=== PATIENT | female | born 1960 | race African-American/Black ===

== ENCOUNTER 2020-07-27 21:06 | Observation (INO) | payer MEDICARE, MEDICAID ==
[2020-07-27] MEDS ORDERED: Nitroglycerin 2% Ointment 1 INCH/1 GM Packet ONE (21:29)
[2020-07-27 21:46] LABS: #Basophils 0.1 thou/uL (0.0-0.2); #Eosinphils 0.1 thou/uL (0.0-0.7); #Monocytes 0.5 thou/uL (0.11-0.59); #Neutrophils 4.3 thou/uL (1.40-6.50); %Basophils 1.8 % (0.0-1.0); %Eosinophils 1.8 % (0.0-10.0); %Lymphocytes 37.2 % (21.0-51.0); %Monocytes 5.6 % (0.0-10.0); %Neutrophils 53.6 % (42.0-75.0); Hemoglobin 14.8 g/dL (12.0-16.0); Mean Corpuscular HGB CONC 32.9 g/dL (32.0-36.0); Mean Corpuscular Hemoglobin 26.7 pg (27.0-31.0); Mean Corpuscular Volume 81.2 fL (78.0-98.0); Mean Platelet Volume 8.4 fL (7.4-10.4); Platelet Count 163 thou/uL (130-400); RBC Distribution Width 13.4 % (11.5-14.5); Red Blood Cell (RBC) Count 5.54 mill/uL (4.20-5.40); White Blood Cell (WBC) Count 8.1 thou/uL (4.8-10.8)
--- NOTE | 2020-07-27 21:56 | RAD ---
PORTABLE CHEST: 07/27/20 PROVIDED CLINICAL HISTORY: Chest pain. FINDINGS: Evaluation is limited by patient body habitus. Cardiac silhouette appears enlarged. Vascular calcific ation. No focal consolidation, pleural fluid or pneumothorax evident. IMPRESSION: As above. POS: [place]
[2020-07-27] MEDS ORDERED: Ondansetron PF 4 MG/2 ML Vial ONE (22:04)
[2020-07-27] MEDS ORDERED: Morphine 4 MG/ML VIAL ONE (22:04)
[2020-07-27 22:07] LABS: ALT (SGPT) 33 U/L (8-55); AST (SGOT) 37 U/L (5-34); Albumin 4.1 g/dL (3.5-5.0); Alkaline Phosphatase 101 U/L (40-110); Anion Gap 15 mmol/L (10-20); BUN (Urea Nitrogen) 14 mg/dL (9.8-20.1); Bilirubin, Total 0.5 mg/dL (0.2-1.2); Calc. Creatinine Clearance 0 mL/min (70-130); Calcium 9.7 mg/dL (7.8-10.44); Carbon Dioxide 26 mmol/L (22-29); Chloride 108 mmol/L (98-107); Estimated GFR-MDRD 45; Globulin 3.2 g/dL (2.4-3.5); Glucose 93 mg/dL (70-105); Lipase 77 U/L (8-78); Potassium 3.8 mmol/L (3.5-5.1); Protein, Total 7.3 g/dL (6.0-8.3); Sodium 145 mmol/L (136-145)
[2020-07-27] MEDS ORDERED: Aspirin Chewable 81 MG TAB ONE (22:30)
--- NOTE | 2020-07-27 23:38 | PDOC.HHP ---
Hospitalist HPI - History of Present Illness chest pain History of Present Illness: The patient is a 60-year-old female with a past medical history significant for CAD (2 stents), CHF, COPD, HTN, DM 2 and CVA that presents to the emergency department for the above complaint. Patient reports the acute onset of chest pain while laying down to go to sleep approximately 20 minutes prior to arrival to the emergency department. Reports the chest pain was located on her left chest, radiating to her left shoulder, described as tightness, constant, exacerbated and relieved by nothing. She reports associated shortness of breath. She has a specialist physician in [place], [place]. She has not had a cardiac work-up in some time. She has a history of COPD, denies wheezing or productive cough. She reports swelling to her bilateral lower extremities, however, she has missed several doses of her Lasix. She denies heart palpitations, lightheadedness, orthopnea/PND. No history of DVT/PE. No history of illicit d rug use. She denies fever and chills. Denies abdominal pain, nausea, vomiting, diarrhea. She denies dysuria or hematuria. ED Course: VITAL SIGNS ThuJul 27, 2020 21:07 KASSI Alcantara Julia BP: 209/108, Pulse: 75, Resp: 16, Temp: 98.2 (Oral), Pain: 7, O2 sat: 96 on (Pinky m Air), Time: 07/27/2020 21:07. VITAL SIGNS ThuJul 27, 2020 21:22 KASSI Callaway Jeffery BP: 195/100, MAP: 131, Pulse: 68, Resp: 22, Temp: 98.6 (Oral), Pain: 6, O2 sat: 99 on (Room Air), Time: 07/27/2020 21:22. VITAL SIGNS ThuJul 27, 2020 21:42 KASSI Doyle Catherine BP: 200/105, Pulse: 71, Resp: 22, Pain: 6, O2 sat: 97 on (Room Air), Time: 07/27/2020 21:42. VITAL SIGNS ThuJul 27, 2020 22:07 KASSI Callaway Jeffery BP: 168/84, MAP: 112, Pulse: 65, Resp: 17, Pain: 2, O2 sat: 96 on (Room Air), Time: 07/27/2020 22:07. VITAL SIGNS ThuJul 27, 2020 22:44 KASSI Callaway Jose BP: 168/82, MAP: 110, Pulse: 75, Resp: 16, O2 sat: 96 on (Room Air), Time: 07/27/2020 22:44. Medications: aspirin oral 324 mg Oral Given 22:39 07/27/2020 ondansetron HCl intravenous 4 mg IV Push Given 22:13 07/27/2020 morphine (PF) injection 4 mg IV Push Given 22:12 07/27/2020 Nitro-Bid transdermal 1 inch Topical Given 21:40 07/27/2020 Hospitalist ROS - Review of Systems All other systems reviewed; all pertinent +/- noted in HPI/Subj - Medication Medications: 1. Lasix unknown dose 2. Potassium chloride unknown dose 3. Metoprolol unknown dose 4. Amlodipine unknown dose 5. Jardiance unknown dose 6. Lantus 40 SC units twice daily 7. Trulicity 1.6 SC units q. 7 days 8. Humulin R 20 units SC twice daily. 9. Ambien unknown dose 10. Hydrocodone unknown dose 11. Lyrica unknown dose Allergies:Latex, Natural Rubber, traMADol Hospitalist History - Past Medical History Cardiac: reports: CAD (X2 stents), CHF, HTN Pulmonary: reports: COPD (No home medications) MANAGER TITLE: reports: CVA (Left residual weakness), Peripheral neuropathy Musculoskeletal: reports: Chronic low back pain Endocrine: reports: Diabetes (Type 2 insulin-dependent) - Past Surgical History Past Surgical History: reports: Hysterectomy, Tubal Ligation, Other (CAD x 2 stents (2010)) - Family History Family History: reports: cardiac disorder, respiratory disorder - Social History Smoking Status: Current every day smoker (1 pack/day x 30 years) Tobacco Type: cigarettes Alcohol: reports: None Drugs: reports: none Living Situation: With Family Occupation: Retired Activity level: uses cane/walker - Exam General Appearance: NAD, awake alert. negative: ill appearing Eye: anicteric sclera ENT: normocephalic atraumatic Neck: supple, symmetric, no JVD Heart: RRR, no murmur, no gallops, no rubs, normal peripheral pulses Respiratory: CTAB, no wheezes, no rales, no ronchi, normal chest expansion, no tachypnea Gastrointestinal: soft, non-tender, normal bowel sounds, no guarding, no rigidity Gastrointestinal - other findings: Negative Rovsing sign, negative Kellogg sign Extremities: no cyanosis, 2+ LE edema Skin: no rashes Neurological: cranial nerve grossly intact, no new deficit Neurological - other findings: Left lower extremity 4/5 power scale Psychiatric: normal affect, A&O x 3 Hospitalist Results - Labs Result Diagrams: 07/27/20 21:36 07/27/20 21:36 Lab results: WBC 8.1 thou/uL (4.8-10.8) 07/27/20 21:36 Hgb 14.8 g/dL (12.0-16.0) 07/27/20 21:36 Hct 45.0 % (36.0-47.0) 07/27/20 21:36 MCV 81.2 fL (78.0-98.0) 07/27/20 21:36 Plt Count 163 thou/uL (130-400) 07/27/20 21:36 Neutrophils % 53.6 % (42.0-75.0) 07/27/20 21:36 Sodium 145 mmol/L (136-145) 07/27/20 21:36 Potassium 3.8 mmol/L (3.5-5.1) 07/27/20 21:36 Chloride 108 mmol/L (98-107) H 07/27/20 21:36 Carbon Dioxide 26 mmol/L (22-29) 07/27/20 21:36 BUN 14 mg/dL (9.8-20.1) 07/27/20 21:36 Creatinine 1.23 mg/dL (0.6-1.1) H 07/27/20 21:36 Glucose 93 mg/dL (70-105) 07/27/20 21:36 Calcium 9.7 mg/dL (7.8-10.44) 07/27/20 21:36 Total Bilirubin 0.5 mg/dL (0.2-1.2) 07/27/20 21:36 AST 37 U/L (5-34) H 07/27/20 21:36 ALT 33 U/L (8-55) 07/27/20 21:36 Alkaline Phosphatase 101 U/L (40-110) 07/27/20 21:36 Troponin I 0.022 ng/mL (< 0.028) 07/27/20 21:36 B-Natriuretic Peptide 39.8 pg/mL (0-100) 07/27/20 21:36 Serum Total Protein 7.3 g/dL (6.0-8.3) 07/27/20 21:36 Albumin 4.1 g/dL (3.5-5.0) 07/27/20 21:36 Lipase 77 U/L (8-78) 07/27/20 21:36 - EKG Interpretation EK lead EKG shows normal sinus arrhythmia, Rate (beats per minute): 73, with no ectopics, Conduction normal, ST segments normal, T waves normal, [place], left, Clinical impression:, non-specific EKG, no stemi. - Radiology Interpretation Chest x-ray Status: report reviewed by me Additional Comment: FINDINGS: Evaluation is limited by patient body habitus. Cardiac silhouette appears enlarged. Vascular calcification. No focal consolidation, pleural fluid or pneumothorax evident. IMPRESSION: As above. Hospitalist H&P A/P - Problem (1) Chest pain Code(s): R07.9 - CHEST PAIN, UNSPECIFIED Status: Acute (2) Hypertensive urgency Code(s): I16.0 - HYPERTENSIVE URGENCY Status: Acute (3) CHF (congestive heart failure) Code(s): I50.9 - HEART FAILURE, UNSPECIFIED Status: Chronic (4) COPD (chronic obstructive pulmonary disease) Status: Chronic (5) Hypertension Code(s): I10 - ESSENTIAL (PRIMARY) HYPERTENSION Status: Chronic (6) DM2 (diabetes mellitus, type 2) Status: Chronic (7) CVA (cerebral vascular accident) Code(s): I63.9 - CEREBRAL INFARCTION, UNSPECIFIED Status: Chronic (8) Tobacco abuse Code(s): Z72.0 - TOBACCO USE Status: Chronic - Plan Plan: 60/F with PMH CAD, CHF, DM 2 presents for chest pain. Admit to telemetry floor, observation status. Expected length of stay less than 2 midnights. Presented hypertensive, NL HR, RR, SPO2, afebrile. EKG sinus arrhythmia, no ST elevations. CXR no acute process. Troponin 0.022, BNP 39. #Chest pain Resolved s/p Nitropaste, morphine, ASA. Heart score 5, Wells PE score 0. Trend troponins, check TSH, FLP, mag level, UA. Continue aspirin, start statin. N.p.o. Nuc med [employer]. #Hypertensive urgency Presented BP 209/108 S/p Nitropaste, BP 165/87. Takes metoprolol, Norvasc, Lasix at home. We will restart home medications when reconciled by nursing. #CHF Chronic, appears stable. Reports missing several doses of her home Lasix. We will restart home medications when reconciled by nursing. Daily weights. #COPD chronic, appears stable. Has no home medications. #Hypertension Presented hypertensive. Takes Norvasc, metoprolol, Lasix at home. Restart home medications when reconciled by nursing. #DM2 Takes Lantus, Humulin, Trulicity, Jardiance at home. Presented BG 93. N.p.o. Hold home antihyperglycemics. Start aggressive ISS. Every 6 checks. #CVA Reports left-sided residual weakness. Supposed to ambulate with a roller walker at home. Noncompliant when ambulating. Does not take aspirin at home. Will start baby aspirin daily. #Tobacco abuse 1ppd habit Unwilling to quit [employer] tobacco cessation. Lovenox for DVT prophylaxis. No GI prophylaxis. Full code. Discussed case with Dr. Salvador Lynne.
[2020-07-28] MEDS ORDERED: HumaLOG 300 UNITS/3 ML VIAL SC PRN ×2 (00:22)
[2020-07-28] MEDS ORDERED: Dextrose 5% in Water 1,000 ML IV PRN (00:22)
[2020-07-28] MEDS ORDERED: Dextrose 50% Abboject 50 ML SYRINGE SLOW IVP PRN (00:22)
[2020-07-28 01:16] LABS: Troponin I 0.026 ng/mL (< 0.028)
[2020-07-28 03:23] VITALS: BMI 47.3
[2020-07-28] MEDS ORDERED: Losartan 25 MG TAB PO SCH ×2 (03:30→09:00)
[2020-07-28 05:09] LABS: Cardiac Risk 3.6 (Less than 4.5)
[2020-07-28 05:19] LABS: Troponin I 0.038 ng/mL (< 0.028)
[2020-07-28] MEDS ORDERED: Nitroglycerin 2% Ointment 1 INCH/1 GM Packet TOP SCH (06:00)
[2020-07-28] MEDS ORDERED: Aspirin 81 mg Enteric Coated Tablet PO SCH (09:00)
[2020-07-28] MEDS ORDERED: Potassium Chloride 10 MEQ TAB PO SCH (09:00)
[2020-07-28] MEDS ORDERED: Furosemide 40 MG TAB PO SCH (09:00)
[2020-07-28] MEDS ORDERED: Amlodipine 10 MG TAB PO SCH (09:00)
[2020-07-28] MEDS ORDERED: Enoxaparin Sodium 40 MG/0.4 ML SYRINGE SC SCH (09:00)
[2020-07-28] MEDS ORDERED: Empagliflozin 25 MG TAB PO SCH (09:00)
[2020-07-28] MEDS ORDERED: Non-Formulary Item 1 EACH (Pregabalin [Lyrica] 300 MG Capsule) PO SCH (09:00)
[2020-07-28] MEDS ORDERED: Non-Formulary Item 1 EACH (Potassium Chloride [Potassium Chloride] 10 MEQ Capsule.Er) PO SCH (09:00)
[2020-07-28] MEDS ORDERED: Non-Formulary Item 1 EACH (Losartan Potassium [Cozaar] 100 MG Tablet) PO SCH (09:00)
[2020-07-28 09:35] LABS: Troponin I 0.024 ng/mL (< 0.028)
[2020-07-28] MEDS ORDERED: Regadenoson 0.4 MG/5 ML SYRINGE ONE (11:01)
[2020-07-28 11:20] VITALS: TEMP 97.1
--- NOTE | 2020-07-28 12:00 | NM ---
Stress only nuclear medicine myocardial perfusion exam: 07/28/2020 COMPARISON: None HISTORY: Chest pain Findings/technique: Following the intravenous administration of 30.1 mCi of technetium 99m labeled se stamibi, SPECT imaging of the left ventricular myocardium obtained during stress. Combination of attenuation correction imaging and nonattenuation correction imaging evaluated, demons trating no definite evidence for a focal perfusion defect. Left ventricular wall motion appears normal. Left ventricular ejection fraction is estimated at 54%. End-diastolic volume is 138 mL and en d systolic volume is 64 mL. IMPRESSION: No convincing evidence for a focal perfusion defect.
[2020-07-28 13:13] LABS: Bilirubin Negative (Negative); Blood, Urine Negative (Negative); Clarity Clear (Clear); Glucose, Urine (Dipstick) 50 mg/dL (Negative); Ketone, Urine Negative (Negative); Leukocyte Negative Leu/uL (Negative); Nitrite Negative (Negative); Protein, Urine (Dipstick) 10 mg/dL (Neg-Trace); RBC/HPF 0-3 HPF (0-3); Specific Gravity, Urine 1.018 (1.002-1.036); WBC/HPF 0-3 HPF (0-3); pH, Urine 5.5 (5.0-9.0)
[2020-07-28 13:14] LABS: Bacteria/HPF 1+ HPF (None Seen)
[2020-07-28 13:35] VITALS: BP 152/74
[2020-07-28 16:23] LABS: SARS-CoV-2 MS2 Positive; SARS-CoV-2 N Gene Negative; SARS-CoV-2 S Gene Negative; SARS-CoV-2 by NAA Not Detected (NotDetected); SARS-CoV-2 orf1ab Negative
--- NOTE | 2020-07-28 19:40 | DIS ---
DATE OF ADMISSION: 07/27/2020 DATE OF DISCHARGE: 07/28/2020 DISCHARGE DIAGNOSES: 1. Chest pain. 2. CAD. 3. Hypertension. 4. Mild acute kidney injury. HOSPITAL COURSE: The patient is a 60-year-old female, who presents to the hospital with some chest pain. [place] is from [place] of town. At this time, troponins were checked. She only had one slightly elevated troponin. At this time, she underwent a stress test and her stress test was negative. No convincible evidence of focal perfusion defect was noted and EF 54%. The patient regardless stated that she will not stay, all her doctors in [place] and she will follow up with them. She was then discharged home. I do not know her underlying creatinine function. I told her to hold off on her losartan until she sees her primary care doctor next week and check blood work. I have asked the nurse to provide the labs so she can take her back to her primary care. HOME MEDICATIONS: 1. Jardiance 25 mg daily. 2. Potassium 1 tab daily. 3. Metoprolol 1 tab daily. 4. Losartan will be held. 5. Lyrica one tab p.o. b.i.d. 6. Amlodipine 10 mg daily. 7. Lasix 40 mg b.i.d. 8. Insulin 40 units b.i.d. 9. Humulin R 20 units b.i.d. PHYSICAL EXAMINATION: VITAL SIGNS: On discharge, temperature of 98.0, heart rate 68, respiratory rate 16, sats 97% on room air, blood pressure 152/74. GENERAL: She is awake, alert, and oriented x3. Does not appear in distress. CV: S1, S2 present. No murmurs, rubs, gallops. Again, she will be discharged home. She will follow up with her primary. Job ID: [id number]
[2020-07-28] MEDS ORDERED: Pregabalin 75 MG CAP PO SCH (21:00)
[2020-07-28] MEDS ORDERED: Atorvastatin Calcium 40 MG TAB PO SCH (21:00)
== END 2020-07-28 13:57 | disposition home or self-care (01) ==
LOC: ERS 21:06 → 2NO 23:15
PROVIDERS: ADMIT Internal Medicine; ATTEND Internal Medicine
DX: R07.89 Other chest pain (principal); I25.10 Atherosclerotic heart disease of native coronary artery without angina pectoris; I16.0 Hypertensive urgency; I11.0 Hypertensive heart disease with heart failure; I50.9 Heart failure, unspecified; N17.9 Acute kidney failure, unspecified; J44.9 Chronic obstructive pulmonary disease, unspecified; E11.42 Type 2 diabetes mellitus with diabetic polyneuropathy; G89.29 Other chronic pain; M54.5 Low back pain; F17.210 Nicotine dependence, cigarettes, uncomplicated; I69.354 Hemiplegia and hemiparesis following cerebral infarction affecting left non-dominant side; R77.8 Other specified abnormalities of plasma proteins; Z79.4 Long term (current) use of insulin; Z79.82 Long term (current) use of aspirin; Z79.899 Other long term (current) drug therapy; Z88.5 Allergy status to narcotic agent; Z91.040 Latex allergy status; Z95.5 Presence of coronary angioplasty implant and graft; Z20.828 Contact with and (suspected) exposure to other viral communicable diseases
CPT/HCPCS: 71045; 78452; 80053; 80061; 81001; 82962; 83690; 83735; 83880; 84443; 84484 ×3; 85025; 93005; 93017; 94760; 96374; 96375; 99285; A9500; U0003; 36415; 36416; 87635; 96372; G0378; J1650; J2270; J2405; J2785